=== PATIENT | male | born 1965 ===

== ENCOUNTER 2025-04-05 14:09 | Outpatient (CLI) | payer BC ==
[~2025-04-05] VITALS: Ht 172.7 cm; Wt 101.6 kg
== END 2025-04-05 17:00 | disposition home or self-care (01) ==
LOC: Rad HDHVI 14:09
PROVIDERS: ATTEND Internal Medicine Cardiovascular Disease
DX: I49.1 Atrial premature depolarization (principal); I49.3 Ventricular premature depolarization; R00.0 Tachycardia, unspecified; R00.1 Bradycardia, unspecified; Z13.6 Encounter for screening for cardiovascular disorders; I10 Essential (primary) hypertension; Z82.49 Family history of ischemic heart disease and other diseases of the circulatory system
CPT/HCPCS: 78452; 93017; A9500; 96374

== ENCOUNTER 2025-04-06 13:00 | Outpatient (CLI) | payer BC | END 2025-04-06 17:00 | disposition home or self-care (01) | LOC: Rad HDHVI 13:00 | PROVIDERS: ATTEND Internal Medicine Cardiovascular Disease | DX: I08.0 Rheumatic disorders of both mitral and aortic valves (principal); I10 Essential (primary) hypertension | CPT/HCPCS: 93306 ==